=== PATIENT | male | born 1975 ===

== ENCOUNTER 2020-07-03 12:37 | Emergency (ER) ==
[~2020-07-03] VITALS: Ht 170.2 cm; Wt 95.3 kg
[2020-07-03] MEDS ORDERED: CEFAZOLIN SOD 1 GM VIAL IM STA (13:07)
[2020-07-03] MEDS ORDERED: TETANUS/DIPHTHERIA TOX ADULT 0.5 ML SYR IM ONE (13:15)
== END 2020-07-03 14:13 | disposition home or self-care (01) ==
LOC: ER 13:21
DX: S68.022A Partial traumatic metacarpophalangeal amputation of left thumb, initial encounter (principal); W20.8XXA Other cause of strike by thrown, projected or falling object, initial encounter
CPT/HCPCS: 73140; 90471; 90714; 99283; J0690